=== PATIENT | female | born 1945 | race American Indian/Alaskan Native ===

== ENCOUNTER 2018-08-11 08:44 | Outpatient (CLI) | payer MEDICARE | END 2018-08-11 08:45 | disposition home or self-care (01) | LOC: C.USIC 08:45 | DX: R10.11 Right upper quadrant pain (principal); N20.0 Calculus of kidney ==

== ENCOUNTER 2018-08-31 10:07 | Outpatient (CLI) | payer MEDICARE | END 2018-08-31 10:08 | disposition home or self-care (01) | LOC: C.RADH 10:08 ==